=== PATIENT | male | born 1980 | race Hispanic/Latino ===

== ENCOUNTER 2017-08-24 15:38 | Emergency (ER) | payer OTHER ==
[2017-08-24 17:37] VITALS: BP 119/80
--- NOTE | 2017-08-24 21:23 | XRay Report ---
FINAL REPORT EXAM: XR FOOT 3+V LT HISTORY: left foot injury with poss broken left toe TECHNIQUE: Three views of the left foot PRIORS: None. FINDINGS: The bones are normally aligned and mineralized. The joint spaces are well-preserved. There is no evidence of acute fracture. The soft tissues are unremarkable. IMPRESSION: No evidence of acute fracture or subluxation.
== END 2017-08-24 21:57 | disposition left against medical advice (07) ==
LOC: ED 15:38
DX: M79.675 Pain in left toe(s) (principal); Z53.21 Procedure and treatment not carried out due to patient leaving prior to being seen by health care provider

== ENCOUNTER 2018-05-08 21:26 | Emergency (ER) | payer SELFPAY ==
[2018-05-08 22:37] VITALS: BP 125/84
[2018-05-08 23:20] LABS: Mean Corpuscular HGB Conc 34 % (32-34); Mean Corpuscular Hemoglobin 30 pg (28-32); Mean Corpuscular Volume 87 fl (84-94); Platelet Count 230 K/mm3 (140-440); Red Cell Distribution Width 14.2 % (13.2-15.2)
[2018-05-08 23:37] LABS: INR 0.87 (0.87-1.13)
[2018-05-08 23:38] LABS: Partial Thromboplastin Time 30.8 Sec. (24.2-36.6)
[2018-05-08 23:40] LABS: BUN/Creatinine Ratio 10; Blood Urea Nitrogen 11 mg/dL (9-20); Calcium 9.3 mg/dL (8.4-10.2); Hemolysis Index 7
--- NOTE | 2018-05-09 00:42 | Cat Scan Report ---
FINAL REPORT EXAM: CT HEAD/BRAIN WO CON HISTORY: RT FACILA AND RT ARM NUMBNESS TECHNIQUE: Routine axial imaging was obtained of the brain without IV contrast. FINDINGS: There is no evidence of acute stroke or hemorrhage. The ventricular system is appropriate in size and is symmetric. The visualized sinuses are clear. The mastoid air cells are well pneumatized. The calvarium appears intact IMPRESSION: Within normal limits.
[2018-05-09 03:09] LABS: Band Neutrophils # (Manual) 0.8 K/mm3; Basophils % (Manual) 0 % (0.0-1.8); Total Cells Counted 100
[2018-05-09 03:10] LABS: RBC Morphology Normal
== END 2018-05-08 22:50 | disposition left against medical advice (07) ==
LOC: ED 21:26
DX: R20.2 Paresthesia of skin (principal); Z53.21 Procedure and treatment not carried out due to patient leaving prior to being seen by health care provider
CPT/HCPCS: 36415; 70450; 80048; 84484; 85007; 85025; 85610; 85670; 85730; 93005; 93010

== ENCOUNTER 2019-12-06 01:57 | Emergency (ER) | payer SELFPAY ==
[2019-12-06 02:13] VITALS: BP 124/85
[2019-12-06] MEDS ORDERED: ACETAMINOPHEN 500 MG TAB PO ONE (05:12)
[2019-12-06] MEDS ORDERED: predniSONE 20 MG TAB PO ONE (05:12)
[2019-12-06] MEDS ORDERED: AMOXICILLIN/K CLAV 875/125MG TAB PO ONE (05:12)
--- NOTE | 2019-12-06 05:48 | Emergency Department Report ---
ED General Adult HPI - General Chief complaint: Skin/Abscess/Foreign Body Stated complaint: FACIAL SWELLING Source: patient Mode of arrival: Ambulatory Limitations: No Limitations - History of Present Illness Initial comments: Patient presents to the ED with complaint of acute onset persistent severe painful swollen left maxillary gums diffusely and the mall and molar toothache with cheek pain for the last 2 days. Patient stated the pain and swelling of worsened in the last 3 hours. Patient denies fever, chills, nausea, vomiting, headache, chest pain, shortness of breath, sore throat, syncope, neck pain, back pain, abdominal pain or diarrhea, traumatic injury or fall. MD Complaint: left maxillary gum swelling; dental abscess -: Sudden, days(s) (2) Location: mouth Radiation: non-radiation Severity scale (0 -10): 5 Quality: aching, sharp Consistency: constant Improves with: none Worsens with: none Associated Symptoms: denies: confusion, chest pain, cough, fever/chills, headaches, loss of appetite, malaise, nausea/vomiting, rash, shortness of breath, syncope Treatments Prior to Arrival: none - Related Data Previous Rx's Medication Instructions Recorded Last Taken Type Clindamycin [Clindamycin CAP] 300 mg PO Q8HR #60 capsule 12/06/19 Unknown Rx predniSONE [Deltasone] 40 mg PO QDAY #10 tab 12/06/19 Unknown Rx traMADoL [Ultram] 50 mg PO Q6HR PRN #15 tablet 12/06/19 Unknown Rx Allergies Allergy/AdvReac Type Severity Reaction Status Date / Time aloe Allergy Hives Verified 08/24/17 17:31 aspirin Allergy Swelling Verified 08/24/17 17:31 ED Review of Systems ROS: Stated complaint: FACIAL SWELLING Other details as noted in HPI Constitutional: denies: chills, fever Eyes: denies: eye pain, eye discharge, vision change ENT: dental pain (left maxillary premolar and molar toothache, swollen left maxillary gums). denies: ear pain, throat pain Respiratory: denies: cough, shortness of breath, wheezing Cardiovascular: denies: chest pain, palpitations Endocrine: no symptoms reported Gastrointestinal: denies: abdominal pain, nausea, diarrhea Genitourinary: denies: urgency, dysuria Musculoskeletal: denies: back pain, joint swelling, arthralgia Skin: denies: rash, lesions Neurological: denies: headache, weakness, paresthesias Psychiatric: denies: anxiety, depression Hematological/Lymphatic: denies: easy bleeding, easy bruising ED Past Medical Hx - Past Medical History Previous Medical History?: No - Surgical History Past Surgical History?: Yes Additional Surgical History: facial surgery, abscess tooth and had oral surgery - Social History Smoking Status: Current Every Day Smoker Substance Use Type: None - Medications Home Medications: Home Medications Medication Instructions Recorded Confirmed Last Taken Type Clindamycin [Clindamycin CAP] 300 mg PO Q8HR #60 capsule 12/06/19 Unknown Rx predniSONE [Deltasone] 40 mg PO QDAY #10 tab 12/06/19 Unknown Rx traMADoL [Ultram] 50 mg PO Q6HR PRN #15 tablet 12/06/19 Unknown Rx ED Physical Exam - General Limitations: No Limitations General appearance: alert, in no apparent distress - Head Head exam: Present: atraumatic, normocephalic, normal inspection - Eye Eye exam: Present: normal appearance, PERRL, EOMI Pupils: Present: normal accommodation - ENT ENT exam: Present: mucous membranes moist, TM's normal bilaterally, normal external ear exam, other (swollen, severely tender left maxillary gums, severely tender left maxillary premolar and molar teeth) - Neck Neck exam: Present: normal inspection, full ROM, lymphadenopathy - Respiratory Respiratory exam: Present: normal lung sounds bilaterally. Absent: respiratory distress, rales, rhonchi, chest wall tenderness, accessory muscle use, decreased breath sounds, prolonged expiratory - Cardiovascular Cardiovascular Exam: Present: regular rate, normal rhythm, normal heart sounds. Absent: systolic murmur, diastolic murmur, rubs, gallop - GI/Abdominal GI/Abdominal exam: Present: soft, normal bowel sounds. Absent: tenderness, guarding, hyperactive bowel sounds, hypoactive bowel sounds, organomegaly - Extremities Exam Extremities exam: Present: normal inspection, full ROM, normal capillary refill - Back Exam Back exam: Present: normal inspection, full ROM. Absent: muscle spasm, paraspinal tenderness - Neurological Exam Neurological exam: Present: alert, oriented X3, CN II-XII intact, normal gait, reflexes normal - Psychiatric Psychiatric exam: Present: normal affect, normal mood - Skin Skin exam: Present: warm, dry, intact, normal color. Absent: rash ED Course Vital Signs 12/06/19 02:08 Temperature 98.4 F Pulse Rate 70 Respiratory 20 Rate Blood Pressure 124/85 O2 Sat by Pulse 97 Oximetry ED Medical Decision Making - Medical Decision Making This is a 39-year-old male who presented to the ED with painful left maxillary premolar molar toothaches with swollen gum for 2 days. In the ED, patient is alert and oriented 3 and his medicine in distress. Patient was to give any the ED and given initial oral antibiotics and discharged home, advised follow-up with his dentist in 7-10 days for reevaluation or return to the ED immediately if symptoms get worse. - Differential Diagnosis Dental abscess; dental caries; acute gingivitis Critical care attestation.: If time is entered above; I have spent that time in minutes in the direct care of this critically ill patient, excluding procedure time. ED Disposition Clinical Impression: Acute gingivitis, Dental abscess, Dental caries Disposition: TO HOME OR SELFCARE Is pt being admited?: No Does the pt Need Aspirin: No Condition: Stable Instructions: Dental Abscess (ED), Gingivitis (ED), Dental Caries (ED) Additional Instructions: Take medication with food, drink plenty of fluids and follow-up with your primary care physician in 7-10 days for reevaluation. Return to ED immediately if symptoms get worse. Consider following up with the dentist as advised at [facility]. Prescriptions: Clindamycin [Clindamycin CAP] 300 mg PO Q8HR #60 capsule predniSONE [Deltasone] 40 mg PO QDAY #10 tab traMADoL [Ultram] 50 mg PO Q6HR PRN #15 tablet PRN Reason: Pain Referrals: [facility] [Outside] - 7-10 days Time of Disposition: 05:49 Print Language: NIUEAN
== END 2019-12-06 06:30 | disposition home or self-care (01) ==
LOC: ED 01:57
DX: K05.10 Chronic gingivitis, plaque induced (principal); K04.7 Periapical abscess without sinus; K02.9 Dental caries, unspecified; F17.200 Nicotine dependence, unspecified, uncomplicated
CPT/HCPCS: 99282; J7512